=== PATIENT | male | born 2005 | race Caucasian/White ===

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

== ENCOUNTER 2024-05-17 11:41 | Outpatient (CLI) | payer MEDICAID, SELFPAY | END 2024-05-17 11:42 | disposition home or self-care (01) | PROVIDERS: Visit Provider Registered Nurse | DX: R42 Dizziness and giddiness (principal); R07.89 Other chest pain; R51.9 Headache, unspecified | CPT/HCPCS: 80053; 84443 ==